=== PATIENT | male | born 1950 | race Caucasian/White ===

== ENCOUNTER → 2018-08-10 | Outpatient (CLI) | payer MEDICARE, BC ==
[2018-08-10] MEDS: REGADENOSON 0.4 MG/5 ML SYG (09:50)
== END | disposition home or self-care (01) ==
LOC: NUC 07:37
DX: I25.10 Atherosclerotic heart disease of native coronary artery without angina pectoris (principal); R06.00 Dyspnea, unspecified
CPT/HCPCS: 78452; 93017